=== PATIENT | female | born 1985 | race African-American/Black ===

== ENCOUNTER 2016-06-07 09:23 | Emergency (ER) | payer MEDICAID ==
[~2016-06-07] VITALS: Ht 154.9 cm; Wt 82.0 kg
[2016-06-07 11:18] VITALS: BP 130/82
[2016-06-07] MEDS ORDERED: BACITRACIN ZINC OINT UDPKT TOP NR (11:30)
[2016-06-07] MEDS ORDERED: LIDOCAINE HCL 1% 20ML VIAL (Pyxis) INJ MC NR (11:30)
== END 2016-06-07 13:38 | disposition left against medical advice (07) ==
LOC: ER 10:12
DX: L02.411 Cutaneous abscess of right axilla (principal); F17.200 Nicotine dependence, unspecified, uncomplicated
CPT/HCPCS: 99281; 99282; J3490

== ENCOUNTER 2017-10-18 08:42 | Emergency (ER) | payer MEDICAID ==
[~2017-10-18] VITALS: Ht 160 cm; Wt 89.0 kg
[2017-10-18 11:14] VITALS: BP 124/84
== END 2017-10-18 11:25 | disposition home or self-care (01) ==
LOC: ER 09:45
DX: L02.411 Cutaneous abscess of right axilla (principal); F17.200 Nicotine dependence, unspecified, uncomplicated
CPT/HCPCS: 81025; 99283

== ENCOUNTER 2024-08-27 12:52 | Emergency (ER) | payer MEDICAID, OTHER ==
[~2024-08-27] VITALS: Ht 165.1 cm; Wt 78.0 kg
[2024-08-27 13:03] VITALS: BP 137/81; TEMP 37.2; O2SAT 100
[2024-08-27 13:06] VITALS: PULSE 96; RESP 16; O2SAT 100
== END 2024-08-27 16:22 ==
LOC: ER 12:52
DX: M54.9 Dorsalgia, unspecified (principal); Z88.1 Allergy status to other antibiotic agents; Z86.59 Personal history of other mental and behavioral disorders; V49.9XXA Car occupant (driver) (passenger) injured in unspecified traffic accident, initial encounter; Y93.89 Activity, other specified; Y92.89 Other specified places as the place of occurrence of the external cause; Y99.8 Other external cause status